=== PATIENT | female | born 1955 | race Caucasian/White ===

== ENCOUNTER 2016-06-03 13:49 | Emergency (ER) | payer OTHER ==
--- NOTE | 2016-06-03 14:00 | ED Physician Documentation ---
General Adult - HISTORIAN Historian: patient - HPI Stated Complaint: L arm numb Chief Complaint: General Adult Additional Information: Woke from a nap just after 1300 and the room seemed to be jumping. Closed her eyes, but when she opened them, room continued to emma. Left arm was numb and this continues. Never had these symptoms before. LNMP 11 years ago. No HX anxiety or panic attacks. - ROS CONST: no problems - PAST HX Past History: none Surgeries/Procedures: other (tonsillectomy) Allergies/Adverse Reactions: Allergies Allergy/AdvReac Type Severity Reaction Status Date / Time No Known Drug Allergies Allergy Verified 06/03/16 15:39 Home Medications: Ambulatory Orders Medication Instructions Recorded Meclizine HCl 25 mg PO Q8H PRN #15 tablet 06/03/16 - SOCIAL HX Smoking History: cigarettes - FAMILY HX Family History: No - REVIEWED ASSESSMENTS Nursing Assessment Reviewed: Yes Vitals Reviewed: Yes Progress - Progress Progress: CT of the head without contrast CLINICAL HISTORY: Dizziness TECHNIQUE: [address] of the head was performed without contrast FINDINGS: There is no hemorrhage midline shift or edema producing mass. There is no hydrocephalus. There is intra cranial atherosclerotic vascular calcification. The visualized sinuses and mastoid air cells are clear. IMPRESSION: Essentially negative CT of the head for the patient's age Electronically signed on Jun 03, 2016 2:55:59 PM CDT by: Ruslan Chao Chest PA and lateral CLINICAL HISTORY: Dizziness altered vision altered mental status TECHNIQUE: PA and lateral chest FINDINGS: Lung menon are hyperinflated but clear. There is no hilar or mediastinal mass. There is no pleural effusion or lesion the bony thorax. IMPRESSION: No acute pulmonary disease Electronically signed on Jun 03, 2016 2:56:57 PM CDT by: Ruslan Chao Troponin I added as patient was concerned about heart attack. All labs, exam and CT brain unremarkable. 1529, Pt having "spell" again. Will try vistaril. Pt states she had turned her head to look at cardiac exercise specialist. When she turned back, symptoms began again. Meclizine given. Sent home with script. ED Results Lab/Radiology - Orders Orders: ED Orders Category Date Time Status Place Saline Lock/IV Now Care 06/03/16 13:54 Ordered CHEST P.A.&LAT 2 VIEWS [RAD] Stat Exams 06/03/[address] BRAIN W/O CONTRAST Stat Exams 06/03/16 Ordered CBC/PLATELET/DIFF Routine Lab 06/03/16 Ordered CMP Routine Lab 06/03/16 Ordered PT-INR Routine Lab 06/03/16 Ordered URINALYSIS Routine Lab 06/03/16 Ordered General Adult Physical Exam - PHYSICAL EXAM GENERAL APPEARANCE: mild distress (anxious) EENT: eye inspection normal, ENT inspection normal, pharynx normal, WENDY NECK: normal inspection, supple RESPIRATORY: no resp distress, breath sounds normal CVS: reg rate & rhythm, heart sounds normal, no murmur ABDOMEN: soft, normal bowel sounds, no distension, non-tender RECTAL: deferred BACK: other (fluid movements w/o pain) SKIN: warm/dry, normal color EXTREMITIES: normal range of motion (gait), no evidence of injury NEURO: CN's nml as tested, motor nml, sensation nml, cognition normal, other ( reflexes 2+ throughout) Discharge Clincal Impression: Dizziness Prescriptions: Meclizine HCl 25 mg PO Q8H PRN #15 tablet PRN Reason: Dizziness Referrals: Primary Doctor,No [Primary Care Provider] - 2 Days Home Medications: Ambulatory Orders Meclizine HCl 25 mg PO Q8H PRN #15 tablet 06/03/16 Condition: Good Disposition: 01 HOME, SELF-CARE Decision to Admit: NO Decision Time: 15:57
[2016-06-03 14:51] LABS: BASOPHILS % 0.6 (0.0-1.5); EOSINOPHILS % 1.2 % (0.0-6.8); MEAN CORPUSCULAR HEMOGLOBIN 30.7 pg (28.0-34.0); MEAN CORPUSCULAR VOLUME 91.3 fl (80.0-100.0); MONOCYTES % 5.9 % (0.0-11.0); NEUTROPHILS # 5.5 # k/uL (1.4-7.7)
[2016-06-03 14:54] LABS: eGFR (African) > 60; eGFR (Non-African) > 60
[2016-06-03] MEDS ORDERED: hydrOXYzine HCL 50 MG/ML VIAL IM ONE (15:29)
[2016-06-03] MEDS: hydrOXYzine HCL 50 MG/ML VIAL IM ONE (15:38)
[2016-06-03] MEDS: MECLIZINE HCL 25 MG TABLET PO ONE (15:55)
[2016-06-03 16:37] VITALS: BP 134/90
--- NOTE | 2016-06-03 17:00 | Diagnostic Imaging Report ---
FREDO GALARZA~ [facility] [address] [facility] [address] [place], [place]. [address] ~ ~ ~ ~ Report Submission Date: Jun 03, 2016 2:56:57 PM CDT Patient ~ Study Name: DENEEN HODGSON ~ Date: Jun 03, 2016 2:26:52 PM CDT ~ Modality Type: CR Gender: F ~ Description: CHEST : 57 ~ Institution: [facility] Physician: FREDO GALARZA ~ ~ ~ ~ Chest PA and lateral CLINICAL HISTORY: ~ Dizziness altered vision altered mental status TECHNIQUE: ~ PA and lateral chest FINDINGS: ~ Lung menon are hyperinflated but clear. ~There is no hilar or mediastinal mass. ~There is no pleural effusion or lesion the bony thorax. IMPRESSION: ~ No acute pulmonary disease ~ Electronically signed on Jun 03, 2016 2:56:57 PM CDT by: Ruslan NORIEGA
--- NOTE | 2016-06-03 17:01 | Diagnostic Imaging Report ---
FREDO GALARZA~ [facility] [address] [facility] [address] [place] [address]. [id number] ~ ~ ~ ~ Report Submission Date: Jun 03, 2016 2:55:59 PM CDT Patient ~ Study Name: DENEEN HODGSON ~ Date: Jun 03, 2016 2:16:05 PM CDT ~ Modality Type: CT\SR Gender: F ~ Description: CT BRAIN W/O CONTRAST : 57 ~ Institution: [facility] Physician: FREDO GALARZA ~ ~ ~ ~ CT of the head without contrast CLINICAL HISTORY: ~ Dizziness TECHNIQUE: ~ [address] of the head was performed without contrast FINDINGS: ~ There is no hemorrhage midline shift or edema producing mass. ~There is no hydrocephalus. ~There is intra cranial atherosclerotic vascular calcification. ~ The visualized sinuses and mastoid air cells are clear. IMPRESSION: ~ Essentially negative CT of the head for the patient's age ~ Electronically signed on Jun 03, 2016 2:55:59 PM CDT by: Ruslan NORIEGA
[2016-06-04 05:46] LABS: APPEARANCE,URINE CLEAR (CLEAR); COLOR,URINE YELLOW (YELLOW)
[2016-06-04 05:47] LABS: OCCULT BLOOD,URINE TRACE-LYSED (NEGATIVE); UROBILINOGEN URINE 0.2 Eu (0.2-1.0)
== END 2016-06-03 16:34 | disposition home or self-care (01) ==
LOC: ED 13:49
DX: R42 Dizziness and giddiness (principal)
CPT/HCPCS: 70450; 71020; 80053; 81002; 84484; 85025; 85610; 93005; 99283; J3410; S1016

== ENCOUNTER 2017-03-27 12:57 | Outpatient (CLI) | payer OTHER ==
--- NOTE | 2017-03-28 09:37 | OP Clinic Progress Note ---
REASON FOR VISIT: This 61-year-old lady is seen with a history of right ear tinnitus and pressure discomfort, and an echoing sound that is quite annoying. She does not tend to have neck pain. She smokes a very small amount. She has not had jaw joint problems. She has used Debrox for her ears. Again, she hears an echo in the right ear and sometimes a very sharp ring and she has an abnormal uncomfortable loudness with certain types of sounds. Again, the TMJ areas do not have pain. The neck does not particularly have pain. There is no wax in the ear canal. There is no perforation of the eardrum. The eardrum is not particularly erythematous. However, the malleus of the eardrum is markedly retracted. The eardrum appears very stiff and tight. 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 There is just a tiniest amount of serous fluid behind the right eardrum. PLAN: Options and choices were given to the patient. I used a diagram and pointed out the differences of the outer ear canal, the middle ear, and the inner ear. Again, this appears to be more of a middle ear-type tensor or an Eustachian tube dysfunction. This does not appear to be infectious, so I have given her a declining dose of prednisone from 20 mg a day for 3 days, 10 mg a day for 3 days and then 10 mg on the 8th day. She can return on a p.r.n. basis. I believe she has a good understanding of the issues and a significant effort was made in this regard. I forgot to comment that the patient has had a significant amount of stress issues over the last several months. Her son broke his knee and had knee surgery. Her , I believe, fell and fractured his hip. Then he had knee surgery in addition. There has been a of a friend and she has had a significant amount of issues with numerous family members and the specifics of which I do not know. Again, there seems to be a significant amount of stress and tension that bothers the patient. I will also comment that the patient has an extremely high -arched narrow hard palate. MTDD
== END 2017-03-27 13:00 ==
LOC: ENT 12:57
PROVIDERS: ATTEND Otolaryngology
DX: H93.11 Tinnitus, right ear (principal)
CPT/HCPCS: G0463

== ENCOUNTER 2017-12-26 09:17 | Outpatient (CLI) | payer OTHER ==
--- NOTE | 2017-12-26 16:24 | Diagnostic Imaging Report ---
RACHEL BETTS [facility] [address] [facility].[address] [address] Report Submission Date: Dec 26, 2017 4:22:28 PM CDT Patient Study Name: CARLA HODGSON Date: Dec 26, 2017 2:55:01 PM CDT Modality Type: CT\SR Gender: F Description: CT ABD PELVIS W/ CON : 57 Institution: [facility] Physician: RACHEL BETTS CT abdomen and pelvis with contrast History: Lower abdominal pain for a week Technique: Helically acquired images were obtained from the hemidiaphragms to the pelvic floor following IV contrast but no oral contrast. Findings: The liver is diffusely low in attenuation consistent with diffuse hepatic steatosis. However, along the periphery of the right hepatic lobe, there is an indeterminate area of enhancement measuring approximately 1.7 x 1.4 cm in greatest dimension. There is an additional small area of subcapsular enhancement at the posterior segment right hepatic lobe. Liver MRI would be recommended for further assessment with regard to these findings. The pancreas, spleen, gallbladder, adrenal glands and kidneys are unremarkable. The abdominal aorta is nonaneurysmal. Deep in the pelvis, there is an abnormality centered between the proximal and distal loops of sigmoid colon. The distal sigmoid colon is abnormally thick walled. Several diverticula are scattered along the sigmoid colon. There is an abnormal and relatively complex fluid collection centered between the proximal and distal loops of the sigmoid colon measuring approximately 5.2 x 3.5 cm in greatest dimension. This complex fluid collection would be consistent with a poorly organized or developing abscess. The uterus and bladder are unremarkable. Lung bases are clear. Impression: Two areas of abnormal enhancement are noted within the right hepatic lobe, one of which appears mass-like. These findings are indeterminate on the basis of this routine CT. Liver MRI would be recommended for further characterization. Otherwise, there is hepatic steatosis. Deep within the pelvis, there are findings consistent with diverticulitis of the distal sigmoid colon and diverticulosis of the sigmoid colon in general. Between the loops of proximal and distal sigmoid, there is a complex fluid collection as detailed in the body of the report and consistent either with a poorly organized or developing abscess. No free air is seen. Electronically signed on Dec 26, 2017 4:22:28 PM CDT by: Carla NORIEGA
== END 2017-12-26 09:19 ==
LOC: RAD 09:17
PROVIDERS: ATTEND Family Medicine
DX: R10.30 Lower abdominal pain, unspecified (principal)
CPT/HCPCS: 36415; 74177; 82565; Q9967